=== PATIENT | male | born 1990 ===

== ENCOUNTER 2023-09-24 06:08 | Day surgery (SDC) | payer OTHER ==
[2023-09-24] MEDS ORDERED: ENOXAPARIN SODIUM 40 MG/0.4 ML SYRINGE SUBCUTANEO ONE ×2 (07:43→09:00)
[2023-09-24] MEDS ORDERED: METRONIDAZOLE/SODIUM CHLORIDE 500 MG/100 ML PIGGYBACK IV ONE ×2 (07:43→09:00)
[2023-09-24] MEDS ORDERED: CEFTRIAXONE SODIUM 2,000 MG VIAL ONE (07:44)
[2023-09-24] MEDS ORDERED: BUPIVACAINE HCL/PF 0.5% 30ML ML IJ ONE (09:00)
[2023-09-24] MEDS ORDERED: CEFTRIAXONE SODIUM 2,000 MG VIAL IV ONE (09:00)
[2023-09-24] MEDS ORDERED: BUPIVACAINE HCL/PF 0.5% 30ML ML ONE (10:17)
[2023-09-24] MEDS ORDERED: CELEBREX200MG PO (12:18)
[2023-09-24] MEDS ORDERED: NEURONTIN300 MG PO (12:19)
[2023-09-24] MEDS ORDERED: COLACE100 MG PO (12:19)
[2023-09-24] MEDS ORDERED: PERCOCET 5-3251 EACH PO (12:19)
== END 2023-09-24 15:00 | disposition home or self-care (01) ==
LOC: CIR.AMB 06:08
PROVIDERS: ATTEND Surgery
DX: K40.90 Unilateral inguinal hernia, without obstruction or gangrene, not specified as recurrent (principal); Z88.0 Allergy status to penicillin; Z20.822 Contact with and (suspected) exposure to COVID-19
CPT/HCPCS: 49650; C1781